=== PATIENT | female | born 1980 | race Caucasian/White ===

== ENCOUNTER 2021-06-06 04:49 | Observation (INO) ==
[2021-06-06] MEDS ORDERED: Melatonin 3 MG TABLET PO PRN (05:02)
[2021-06-06] MEDS ORDERED: Naloxone 0.4 MG/ML INJ IVP PRN (05:02)
[2021-06-06] MEDS ORDERED: Ringers Solution, Lactated 1,000 ML IVC SCH (06:15)
[2021-06-06 06:27] LABS: Hemoglobin 6.6 g/dL (11.5-15.4); Mean Corpuscular HGB Conc 26.4 g/dL (31.6-35.5); Mean Corpuscular Hemoglobin 18.9 pg (28.0-33.3); Mean Corpuscular Volume 71.4 fL (83.0-100.0); Mean Platelet Volume 9.5 fL (9.4-12.4); Platelet Count 233 K/mcL (140-400); Red Cell Distribution Width 22.8 % (11.5-14.5); White Blood Count 6.7 K/mcL (4.3-11.1)
[2021-06-06 06:50] LABS: BUN/Creatinine Ratio 21 (6-26); Blood Urea Nitrogen 15 mg/dL (6-20); Calcium 7.8 mg/dL (8.6-10.3); Carbon Dioxide 24 mEq/L (23-29); Chloride 107 mEq/L (98-107); Glucose 89 mg/dL (70-105); Osmolality,Calculated 284 (280-300); Potassium 3.5 mEq/L (3.5-5.1); Sodium 137 mEq/L (136-145); eGFR For African Americans > 60 (> 60); eGFR For Non-African Americans > 60 (> 60)
[2021-06-06] MEDS: Pantoprazole 40 MG VIAL IVP SCH ×2 (06:57→16:29)
[2021-06-06 07:12] LABS: Albumin 3.7 g/dL (3.5-5.7); Albumin/Globulin Ratio 1.7 (1.1-2.2); Bilirubin,Direct 0.2 mg/dL (0.0-0.2); Bilirubin,Indirect 0.6 mg/dL (0.0-1.0); Bilirubin,Total 0.8 mg/dL (0.3-1.0); Globulin 2.2 g/dL (2.4-3.5); Total Protein 5.9 g/dL (6.4-8.9)
[2021-06-06 07:34] LABS: Hepatitis B Surface Antigen Nonreactive (Nonreactive)
[2021-06-06 08:03] LABS: Hepatitis C Virus Antibody Nonreactive (Nonreactive)
[2021-06-06 08:04] LABS: Hepatitis A Antibody IgM Nonreactive (Nonreactive); Hepatitis B Core IgM Nonreactive (Nonreactive)
[2021-06-06] MEDS ORDERED: 0.9 % Sodium Chloride 250 ML ONE (10:05)
[2021-06-06] MEDS ORDERED: Ibuprofen 600 MG TABLET PO ONE (10:34)
[2021-06-06] MEDS: cefTRIAXone 1,000 MG in Water for inj. (sterile) 10 ML IVP SCH (10:48)
[2021-06-06 16:21] LABS: Hematocrit 28.4 % (35.3-44.9); Hemoglobin 7.8 g/dL (11.5-15.4); Mean Corpuscular HGB Conc 27.5 g/dL (31.6-35.5); Mean Corpuscular Volume 72.8 fL (83.0-100.0); Mean Platelet Volume 9.8 fL (9.4-12.4); Platelet Count 221 K/mcL (140-400); Red Cell Distribution Width 21.7 % (11.5-14.5)
[2021-06-06 16:40] LABS: % Iron Saturation 10 % (15-50); Iron 42 mcg/dL (50-170); Transferrin 300 mg/dL (203-362)
[2021-06-06 16:58] LABS: Ferritin 29 ng/mL (10-120)
[2021-06-06 19:02] LABS: Hematocrit 27.1 % (35.3-44.9); Hemoglobin 7.4 g/dL (11.5-15.4)
[2021-06-07 05:11] LABS: VBG Ionized Calcium 1.13 mmol/L (1.15-1.35)
[2021-06-07 05:18] LABS: Basophils % 0.5 %; Immature Granulocytes % 0.7 % (0-4); Lymphocytes % 11.1 %; Mean Corpuscular Volume 71.1 fL (83.0-100.0)
[2021-06-07 05:19] LABS: Eosinophils # 0.3 K/mcL (0.0-0.6); Eosinophils % 4.6 %; Hematocrit 28.5 % (35.3-44.9); Hemoglobin 7.7 g/dL (11.5-15.4); Lymphocytes # 0.7 K/mcL (0.6-4.6); Mean Corpuscular Hemoglobin 19.2 pg (28.0-33.3); Monocytes # 0.4 K/mcL (0.0-1.3); Monocytes % 6.6 %; Neutrophils # 4.5 K/mcL (1.6-8.9); Platelet Count 207 K/mcL (140-400); Red Blood Count 4.01 M/mcL (3.82-4.97); Red Cell Distribution Width 21.6 % (11.5-14.5); Segmented Neutrophils % 76.5 %; White Blood Count 5.9 K/mcL (4.3-11.1)
[2021-06-07 05:25] LABS: INR 1.1; Prothrombin Time 12.8 Seconds (9.4-12.1)
[2021-06-07 05:34] LABS: Alanine Aminotransferase 7 Units/L (7-52); Albumin 3.6 g/dL (3.5-5.7); Albumin/Globulin Ratio 1.5 (1.1-2.2); Alkaline Phosphatase 43 Units/L (34-104); Aspartate Amino Transferase 18 Units/L (13-39); BUN/Creatinine Ratio 17 (6-26); Bilirubin,Total 0.6 mg/dL (0.3-1.0); Blood Urea Nitrogen 10 mg/dL (6-20); Calcium 7.9 mg/dL (8.6-10.3); Carbon Dioxide 23 mEq/L (23-29); Chloride 108 mEq/L (98-107); Globulin 2.4 g/dL (2.4-3.5); Glucose 82 mg/dL (70-105); Osmolality,Calculated 280 (280-300); Potassium 3.4 mEq/L (3.5-5.1); Sodium 136 mEq/L (136-145); eGFR For African Americans > 60 (> 60); eGFR For Non-African Americans > 60 (> 60)
[2021-06-07] MEDS: Pantoprazole 40 MG VIAL IVP SCH ×2 (05:35→16:39)
[2021-06-07 05:47] LABS: Anisocytosis 2+ (Not Present); Microcytosis Present (Not Present); Platelet Estimate Normal (Normal)
[2021-06-07] MEDS ORDERED: Calcium Gluconate 1gm/50mL 1 GM/50 ML BAG IVPB ONE (07:22)
[2021-06-07] MEDS: cefTRIAXone 1,000 MG in Water for inj. (sterile) 10 ML IVP SCH (10:13)
[2021-06-07 10:39] LABS: Bilirubin,Urine Negative (Negative); Blood,Urine Large (Negative); Clarity,Urine Ex.Turbid (Clear); Color,Urine Brown (Yellow); Glucose,Urine (UA) Normal (Normal); Ketones,Urine Negative (Negative); Leukocyte Esterase,Urine Small (Negative); Nitrite,Urine Negative (Negative); Protein,Urine 50 mg/dL (Neg-Trace); RBC,Urine TNTC per hpf (0-3); Specific Gravity,Urine 1.013 (1.010-1.025); Squamous Epithelial Cell,Urine Few per hpf (None-Few); Urobilinogen,Urine Normal (Normal)
[2021-06-07] MEDS ORDERED: Lidocaine -MPF 2% 5 ML VIAL ONE (13:49)
[2021-06-07] MEDS ORDERED: *HR* Propofol 200 MG/20 ML VIAL IVP ONE (13:57)
[2021-06-07] MEDS ORDERED: amLODIPine 5 MG TABLET PO SCH (16:00)
[2021-06-07 17:42] LABS: Folate 7.1 ng/mL (3.0-16.0)
[2021-06-08 02:08] LABS: VBG Ionized Calcium 1.15 mmol/L (1.15-1.35)
[2021-06-08 02:13] LABS: Hemoglobin 7.8 g/dL (11.5-15.4); Mean Corpuscular Volume 71.1 fL (83.0-100.0)
[2021-06-08 02:14] LABS: Hematocrit 28.8 % (35.3-44.9); Mean Corpuscular HGB Conc 27.1 g/dL (31.6-35.5); Mean Corpuscular Hemoglobin 19.3 pg (28.0-33.3); Mean Platelet Volume 9.8 fL (9.4-12.4); Platelet Count 213 K/mcL (140-400); Red Blood Count 4.05 M/mcL (3.82-4.97); Red Cell Distribution Width 22.1 % (11.5-14.5); White Blood Count 3.9 K/mcL (4.3-11.1)
[2021-06-08 02:29] LABS: BUN/Creatinine Ratio 13 (6-26); Blood Urea Nitrogen 8 mg/dL (6-20); Calcium 8.2 mg/dL (8.6-10.3); Carbon Dioxide 25 mEq/L (23-29); Chloride 110 mEq/L (98-107); Glucose 93 mg/dL (70-105); Osmolality,Calculated 288 (280-300); Potassium 3.3 mEq/L (3.5-5.1); Sodium 140 mEq/L (136-145); eGFR For African Americans > 60 (> 60); eGFR For Non-African Americans > 60 (> 60)
[2021-06-08] MEDS: Pantoprazole 40 MG VIAL IVP SCH ×2 (05:25→16:15)
[2021-06-08] MEDS: amLODIPine 5 MG TABLET PO SCH (08:06)
[2021-06-08 10:48] LABS: AFP Tumor Marker Non-Pregnant 1 ng/mL (0-9)
[2021-06-08] MEDS: cefTRIAXone 1,000 MG in Water for inj. (sterile) 10 ML IVP SCH (11:38)
[2021-06-08 12:06] LABS: Estimated Average Glucose 97 mg/dl
[2021-06-08 14:22] LABS: Adenovirus Not Detected (Not Detect); Bordetella Pertussis Not Detected (Not Detect); Chlamydophila pneumoniae Not Detected (Not Detect); Coronavirus 229E Not Detected (Not Detect); Coronavirus HKU1 Not Detected (Not Detect); Coronavirus NL63 Not Detected (Not Detect); Coronavirus OC43 Not Detected (Not Detect); Human Metapneumovirus Not Detected (Not Detect); Human Rhinovirus/Enterovirus Not Detected (Not Detect); Influenza A Subtype 2009 H1 Not Detected (Not Detect); Influenza B Not Detected (Not Detect); Mycoplasma pneumoniae Not Detected (Not Detect); Parainfluenza Virus 1 Not Detected (Not Detect); Parainfluenza Virus 2 Not Detected (Not Detect); Parainfluenza Virus 3 Not Detected (Not Detect); Parainfluenza Virus 4 Not Detected (Not Detect); Respiratory Syncytial Virus Not Detected (Not Detect); SARS-CoV-2 Not Detected (Not Detect)
[2021-06-09] MEDS: Pantoprazole 40 MG VIAL IVP SCH (04:56)
[2021-06-09 05:32] LABS: Hematocrit 29.3 % (35.3-44.9); Hemoglobin 7.8 g/dL (11.5-15.4); Mean Corpuscular HGB Conc 26.6 g/dL (31.6-35.5); Mean Corpuscular Hemoglobin 19.1 pg (28.0-33.3); Mean Corpuscular Volume 71.6 fL (83.0-100.0); Mean Platelet Volume 9.9 fL (9.4-12.4); Platelet Count 235 K/mcL (140-400); Red Blood Count 4.09 M/mcL (3.82-4.97); Red Cell Distribution Width 22.4 % (11.5-14.5); White Blood Count 4.4 K/mcL (4.3-11.1)
[2021-06-09 05:50] LABS: BUN/Creatinine Ratio 13 (6-26); Blood Urea Nitrogen 8 mg/dL (6-20); Calcium 8.5 mg/dL (8.6-10.3); Carbon Dioxide 27 mEq/L (23-29); Chloride 106 mEq/L (98-107); Glucose 98 mg/dL (70-105); Osmolality,Calculated 284 (280-300); Potassium 3.6 mEq/L (3.5-5.1); Sodium 138 mEq/L (136-145); eGFR For African Americans > 60 (> 60); eGFR For Non-African Americans > 60 (> 60)
[2021-06-09 07:06] LABS: ANA IgG by ELISA NONE DETECTED (None Detected); F-Actin (sm muscle) Ab IgG 24 Units (0-19)
[2021-06-09 07:25] VITALS: O2SAT 97
[2021-06-09] MEDS: amLODIPine 5 MG TABLET PO SCH (07:30)
[2021-06-09 11:06] VITALS: BP 142/82; PULSE 74; TEMP 98
[2021-06-11 02:36] LABS: ANCA IFA Titer <1:20 (<1:20)
[2021-06-11 09:52] LABS: ANCA IFA Pattern NONE DETECTED (None Detected); Serine Protease-3 Antibody 3 AU/mL (0-19)
[2021-06-11 10:55] LABS: Smooth Muscle Ab Titer IgG 1:40 (<1:20)
== END 2021-06-09 13:08 | disposition home or self-care (01) ==
LOC: 2ANU → SUATTDRO 04:49
PROVIDERS: ADMIT Internal Medicine; ATTEND Internal Medicine